=== PATIENT | female | born 1935 | race Caucasian/White ===

== ENCOUNTER 2019-05-06 14:16 | Emergency (ER) | payer MEDICARE, OTHER ==
[~2019-05-06] VITALS: Ht 154.9 cm; Wt 60.3 kg
[~2019-05-06 14:16] MED LIST: CITA10SO PO; GLU500 PO; LOSA50TA28 PO; LOVA10TA55 PO; PRO40 PO
[2019-05-06] MEDS ORDERED: NACL 0.9% 1,000 ML IV ONE (14:21)
[2019-05-06 14:24] VITALS: BP_SYST 135
--- NOTE | 2019-05-06 14:24 | NUR ---
Placed in room 3 . Placed on manager cardiac, blood pressure machine and pulse oximeter. To gown for exam. Side rails up. Report given to PAT Saxena.
[2019-05-06] MEDS ORDERED: DEXAMETHASONE SOD PHOSPHATE 10 MG/ML VIAL IVP ONE (14:30)
[2019-05-06] MEDS ORDERED: ONDANSETRON HCL 4 MG/2 ML VIAL IVP ONE (14:30)
[2019-05-06] MEDS ORDERED: MORPHINE 4 MG/ML INJ. SYRINGE IVP ONE (14:30)
--- NOTE | 2019-05-06 14:30 | NUR ---
Patient came to ER due to neck back and head pain. Patient has rated 9/10. Patient advised that this began this morning and hoping to get relief. Patient is laying in the gurney and not presenting any signs of acute distress.
--- NOTE | 2019-05-06 14:50 | NUR ---
ER Dr. Dang at bedside examining patient.
[2019-05-06 15:50] LABS: BASOPHILS % (AUTO) 0.3 % (0.0-2.0); EOSINOPHILS # (AUTO) 0.1 K/uL (0.0-0.4); EOSINOPHILS % (AUTO) 1.1 % (0.0-4.0); HEMATOCRIT 40.4 % (36-48); HEMOGLOBIN 13.4 g/dL (12.0-16.0); LYMPHOCYTES # (AUTO) 0.8 K/uL (1.0-5.5); LYMPHOCYTES % (AUTO) 15.9 % (20.5-51.5); MEAN CORPUSCULAR HEMOGLOBIN 29 pg (27-31); MEAN CORPUSCULAR HGB CONC 33 % (32-36); MEAN CORPUSCULAR VOLUME 88 fL (79.0-98.0); MONOCYTES # (AUTO) 0.5 K/uL (0.0-1.0); MONOCYTES % (AUTO) 8.9 % (1.7-9.3); NEUTROPHILS # (AUTO) 3.9 K/uL (1.8-7.7); NEUTROPHILS % (AUTO) 73.8 % (40.0-70.0); PLATELET COUNT (AUTO) 227 K/uL (130-430); RED BLOOD CELL COUNT(AUTO) 4.59 MIL/uL (4.2-6.2); RED CELL DISTRIBUTION WIDTH 17.3 % (9.0-15.0); WHITE BLOOD COUNT (AUTO) 5.3 K/uL (4.8-10.8)
--- NOTE | 2019-05-06 15:50 | NUR ---
Patient transported to radiology via , accompanied by adam.
[2019-05-06 15:53] LABS: BILIRUBIN,URINE NEGATIVE (NEGATIVE); BLOOD, URINE NEGATIVE (NEGATIVE); CLARITY/URINE CLEAR (CLEAR); COLOR,URINE YELLOW (YELLOW); GLUCOSE,URINE 3+ (NEGATIVE); KETONES,URINE NEGATIVE (NEGATIVE); LEUKOCYTE ESTERASE ,URINE NEGATIVE (NEGATIVE); NITRITE, URINE NEGATIVE (NEGATIVE); PROTEIN URINE NEGATIVE (NEGATIVE); UROBILINOGEN,URINE 0.2 (0.2-1.0)
[2019-05-06 16:02] LABS: ANION GAP 8 (5-15); CALCIUM 9.2 mg/dL (8.4-11.0); CHLORIDE 99 mmol/L (98-107); GLUCOSE 240 mg/dL (70-99); POTASSIUM 3.9 mmol/L (3.5-5.1); SODIUM SERUM 135 mmol/L (136-145); UREA NITROGEN, BLOOD 13 mg/dL (8-21)
[2019-05-06 16:08] LABS: ALANINE AMINOTRANSFERASE 20 U/L (12-78); ALBUMIN 3.7 g/dL (3.4-4.8); ASPARTATE AMINOTRANSFERASE 11 U/L (10-37); TOTAL BILIRUBIN 0.4 mg/dL (0.0-1.0)
--- NOTE | 2019-05-06 16:15 | NUR ---
Patient daughter at bedside. Patient is resting and advised that her pain has lowered to 5/10.
== END 2019-05-06 16:43 | disposition home or self-care (01) ==
LOC: SED 14:16
DX: M54.2 Cervicalgia (principal); G44.209 Tension-type headache, unspecified, not intractable; M54.5 Low back pain; E11.9 Type 2 diabetes mellitus without complications; I10 Essential (primary) hypertension; E78.00 Pure hypercholesterolemia, unspecified; Z88.0 Allergy status to penicillin; Z86.73 Personal history of transient ischemic attack (TIA), and cerebral infarction without residual deficits; Z79.899 Other long term (current) drug therapy
CPT/HCPCS: 36415; 71045; 72080; 80053; 81003; 83605; 85025; 87040; 96374; 96375; 99284; J1100; J2270; J2405; J7030